=== PATIENT | male | born 1980 | race Caucasian/White ===

== ENCOUNTER 2016-12-31 23:32 | Emergency (ER) | payer MEDICAID ==
[~2016-12-31] VITALS: Ht 154.9 cm; Wt 74.5 kg
[2016-12-31 23:38] VITALS: Ht 154.9 cm; Wt 74.5 kg
[2017-01-01] MEDS ORDERED: KETOROLAC 30 MG INJ IM STA
--- NOTE | 2017-01-01 00:11 | ERD ---
ER Documentation Chief Complaint Date/Time DATE: 01/01/17 TIME: 00:09 Chief Complaint Right leg pain since this morning HPI Patient is a 36-year-old male who presents to the ED with right leg pain that started this morning. 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 He states that the pain is on his right hip and radiates down to his right foot and complains of numbness and tingling. He states that he has some difficulty walking. Denies redness or swelling. Denies recent travel or recent surgeries. Denies fever or chills. Denies chest pain, cough, shortness of breath or difficulty breathing. He has no other complaints. Denies dizziness or headaches. ROS All systems reviewed and are negative except as per history of present illness. Medications Home Meds Active Scripts Naproxen* (Naprosyn*) 500 Mg Tablet, 500 MG PO BID Y for PAIN AND/OR INFLAMMATION, #30 TAB Prov:MARYBETH WALDEN PA-C 01/01/17 Allergies Allergies: Coded Allergies: No Known Allergy (Unverified , 10/25/14) PMhx/Soc History of Surgery: No Anesthesia Reaction: No Hx Neurological Disorder: No Hx Respiratory Disorders: No Hx Cardiac Disorders: No Hx Psychiatric Problems: No Hx Alcohol Use: No (occassional) Hx Substance Use: No Hx Tobacco Use: Yes Smoking Status: Never smoker Physical Exam Vitals Vital Signs Date Time Temp Pulse Resp B/P Pulse Ox O2 Delivery O2 Flow Rate FiO2 12/31/16 23:38 97.5 87 20 134/74 99 Physical Exam GENERAL: Well-developed, well-nourished male. Appears in no acute distress. HEAD: Normocephalic, atraumatic. EYES: Pupils are equally reactive bilaterally. EOMs grossly intact. No conjunctival erythema. ENT: Moist mucous membranes. No uvula deviation. No kissing tonsils. No exudates. NECK: Supple. No lymphadenopathy or thyromegaly. No meningismus. negative kernig. negative brudinski. LUNG: Clear to auscultation bilaterally. No rhonchi, wheezing, rales or coarse breath sounds. HEART: Regular rate and rhythm. No murmurs, rubs or gallops. Extremities: Equal pulses bilaterally. No peripheral clubbing, cyanosis or edema. No unilateral leg swelling. Negative Homans sign. No swelling or erythema. Tenderness throughout the right leg. No step-offs or deformities. No focal tenderness. Positive straight leg test. NEUROLOGIC: Alert and oriented. Moving all four extremities. 5/5 strength in all extremities. Normal speech. On steady gait. SKIN: Normal color. Warm and dry. No rashes or lesions. Capillary refill < 2 seconds Results 24 hrs Current Medications Medications (Trade) Dose Ordered Sig/Arlene Route PRN Reason Start Time Stop Time Status Last Admin Dose Admin Ketorolac Tromethamine (Toradol) 30 mg ONCE STAT IM 01/01/17 00:00 01/01/17 00:07 DC 01/01/17 00:41 Procedures/MDM ER COURSE: I kept the patient and/or family informed of laboratory and diagnostic imaging results throughout the emergency room course. IMAGING STUDIES [place] [id number] Radiology Main Line: [phone] DIAGNOSTIC IMAGING REPORT Patient: GREGORIA JACOBSON : 1980 Age: 36 Sex: M MR #: [id number] DOS: 01/01/17 0000 Ordering MD: MARYBETH WALDEN PA-C Location: [facility] Room/Bed: PROCEDURE: US Lower extremity Venous. CLINICAL INDICATION: Right leg pain TECHNIQUE: Multiple sonographic images of the right lower extremity deep venous system was obtained utilizing grayscale, color-flow, compressive sonography and doppler imaging with augmentation. The images were reviewed on a PACS workstation. COMPARISON: None. FINDINGS: There is normal compressibility and flow within the right common femoral, deep femoral, superficial femoral and popliteal veins. The deep veins the calf were incompletely visualized. IMPRESSION: No sonographic evidence for deep venous thrombosis. RPTAT: [facility] Physician Dylan Date Time Electronically viewed and signed by Physician Dylan on 01/01/2017 00:51 RS/ CC: MARYBETH WALDEN PA-C Toradol 30 mg IM. Tolerated well with no adverse reaction. Seen improvement in symptoms. MEDICAL DECISION MAKING: This is a 36-year-old male who presents with right leg pain 1 day. Vital signs were reviewed. Patient is afebrile. Patient is not hypoxic. Patient is not toxic or ill-appearing. Patient has leg pain of unknown etiology likely sciatica. His ultrasound is read by radiologist is unremarkable. Low suspicion for dislocation, fracture, septic joint, compartment syndrome, osteomyelitis, avascular necrosis, DVT, Achilles tendon rupture, cellulitis. At this time, unable to rule out any tendon and ligament injuries. DISCHARGE: At this time, patient is stable for discharge and outpatient management with no new complaints during the ER course. Patient was sent home with Garett. Patient will be discharged home with instructions to recheck for new or worsening symptoms such as fever, nausea, weakness, LOC and to follow up with primary care in the next 1-2 days. Patient was advised to return to the ER for any new or worsening symptoms. Plan was discussed and patient and/or family understands and agrees. Home instructions were given. Departure Diagnosis: Primary Impression: Pain in right leg Condition: Stable MARYBETH WALDEN PA-C Jan 01, 2017 00:11
--- NOTE | 2017-01-01 00:52 | RADRPT ---
PROCEDURE: US Lower extremity Venous. CLINICAL INDICATION: Right leg pain TECHNIQUE: Multiple sonographic images of the right lower extremity deep venous system was obtaine d utilizing grayscale, color-flow, compressive sonography and doppler imaging with augmentation. Th e images were reviewed on a PACS workstation. COMPARISON: None. FINDINGS: There is normal compressibility and flow within the right common femoral, deep femoral, superficial femoral and popliteal veins. The deep veins the calf were incompletely visualized. IMPRESSION: No sonographic evidence for deep venous thrombosis. RPTAT: [facility] Physician Dylan Date Time Electronically viewed and signed by Physician Dylan on 01/01/2017 00:51 RS/
[2017-01-01] MEDS ORDERED: NAPR-260 PO (01:01)
[2017-01-01 01:21] VITALS: BP 128/74; PULSE 76; RESP 16
== END 2017-01-01 01:22 | disposition home or self-care (01) ==
LOC: FTE 23:32
DX: M79.604 Pain in right leg (principal)
CPT/HCPCS: 93971; 96372; J1885; Z7502

== ENCOUNTER 2017-01-03 14:01 | Emergency (ER) | payer MEDICAID ==
[~2017-01-03] VITALS: Ht 160 cm; Wt 78.0 kg
[~2017-01-03 14:01] MED LIST: NAPR-260 PO
[2017-01-03 14:16] VITALS: Ht 160 cm; Wt 78.0 kg
[2017-01-03] MEDS ORDERED: HYDR-906 PO (16:20)
--- NOTE | 2017-01-03 16:20 | ERD ---
ER Documentation Chief Complaint Date/Time DATE: 01/03/17 TIME: 16:18 Chief Complaint back pain rad right leg, seen here last tuesday HPI This is a 36-year-old male presents to the emergency room for evaluation of back pain. This patient was seen in the emergency room last week and was diagnosed with sciatica. He states that his pain has gotten worse because he started to work out. He describes pain as a sharp pain which radiates down the back of his leg past his knee. He states is worse with lifting and movement of his right leg. Patient denies any urinary incontinence or urinary retention ROS All systems reviewed and are negative except as per history of present illness. Medications Home Meds Active Scripts Naproxen* (Naprosyn*) 500 Mg Tablet, 500 MG PO BID Y for PAIN AND/OR INFLAMMATION, #30 TAB Prov:MARYBETH WALDEN PA-C 01/01/17 Allergies Allergies: Coded Allergies: No Known Allergy (Unverified , 10/25/14) PMhx/Soc History of Surgery: No Anesthesia Reaction: No Hx Neurological Disorder: No Hx Respiratory Disorders: No Hx Cardiac Disorders: No Hx Psychiatric Problems: No Hx Alcohol Use: No (occassional) Hx Substance Use: No Hx Tobacco Use: Yes Physical Exam Vitals Vital Signs Date Time Temp Pulse Resp B/P Pulse Ox O2 Delivery O2 Flow Rate FiO2 01/03/17 14:16 98.1 69 18 137/68 99 Physical Exam Const: No acute distress Head: Atraumatic Eyes: Normal Conjunctiva ENT: Normal External Ears, Nose and Mouth. Neck: Full range of motion..~ No meningismus. Resp: Clear to auscultation bilaterally Cardio: Regular rate and rhythm, no murmurs Abd: Soft, non tender, non distended. Normal bowel sounds Skin: No petechiae or rashes Back: No midline or flank tenderness Ext: No cyanosis, or edema Neur: Positive straight leg raise at 20 on the right, awake and alert Psych: Normal Mood and Affect Procedures/MDM This 36-year-old male presents to the emergency room for evaluation of back pain. This patient's history and physical exam is consistent with acute sciatica. He is taking Motrin at home for his pain, and states that is not helping. This patient does have a positive straight leg raise. No signs of urinary retention or urinary incontinence. My suspicion for cauda equina is low at this time. The patient will be discharged home with a prescription for [place]. Patient presents today with atraumatic back pain. Although infection, malignancy, GI, , and vascular causes have been considered in this patient, the patient's clinical presentation is most consistent with a musculoskeletal cause. There is neither evidence of any acute neurologic damage, nor of loss of function and thus, advanced imaging studies have been deferred. Patient will be treated conservatively with appropriate pain control precautionary discharge instructions provided. Departure Diagnosis: Primary Impression: Acute sciatica Condition: Stable PALMIRA NAVA DO Jan 03, 2017 16:19
== END 2017-01-03 16:23 | disposition home or self-care (01) ==
LOC: E/R 14:01
DX: M54.31 Sciatica, right side (principal); F17.210 Nicotine dependence, cigarettes, uncomplicated
CPT/HCPCS: 99283